=== PATIENT | female | born 1945 | race African-American/Black ===

== ENCOUNTER 2018-09-19 22:28 | Emergency (ER) | payer MEDICARE, BC ==
[2018-09-19] MEDS: FAMOTIDINE 20 MG TAB PO (23:45)
[2018-09-19] MEDS: HYDROCODONE/APAP (5/325) TAB PO (23:45)
[2018-09-19] MEDS: KETOROLAC 30 MG INJ IM (23:48)
[2018-09-20 00:03] LABS: ADD UMIC NO; UR ASCORBIC ACID NEGATIVE (NEGATIVE); UR BILIRUBIN (Dip) NEGATIVE (NEGATIVE); UR BLOOD (Dip) NEGATIVE (NEGATIVE); UR CLARITY SLIGHTLY CLOUDY (CLEAR); UR COLOR YELLOW (YELLOW); UR GLUCOSE (Dip) NEGATIVE (NEGATIVE); UR KETONES (Dip) NEGATIVE (NEGATIVE); UR LEUKOCYTE ESTERASE (Dip) NEGATIVE Leu/ul (NEGATIVE); UR NITRITE (Dip) NEGATIVE (NEGATIVE); UR RBC 2 /HPF (0-5); UR SPECIFIC GRAVITY (Dip) 1.021 (1.003-1.030); UR SQUAMOUS EPITHELIAL CELL FEW /HPF (FEW); UR TOTAL PROTEIN (Dip) NEGATIVE (NEGATIVE); UR UROBILINOGEN (Dip) 1+ mg/dL (NEGATIVE); UR WBC 5 /HPF (0-5)
== END 2018-09-20 01:00 | disposition left against medical advice (07) ==
LOC: FTE 09-20 01:00
DX: M54.42 Lumbago with sciatica, left side (principal); I10 Essential (primary) hypertension; F17.210 Nicotine dependence, cigarettes, uncomplicated
CPT/HCPCS: 81001; 81003; 93005; 96372; 99284-25